=== PATIENT | male | born 1995 | race Hispanic/Latino ===

== ENCOUNTER 2017-06-27 21:21 | Emergency (ER) | payer BC ==
--- NOTE | 2017-06-27 22:19 | C.PDOC ---
History Of Present Illness 21 year old male who presents to the ER he fell down 12 steps and hit the back of his head. Patient admits he has been drinking tonight; denies LOC, headache, neck pain, or vomiting. Patient's last tetanus vaccination was 2-3 years ago. Time Seen by Provider: 06/27/17 22:03 Chief Complaint (Nursing): Abnormal Skin Integrity History Per: Patient History/Exam Limitations: no limitations Onset/Duration Of Symptoms: Hrs Current Symptoms Are (Timing): Still Present Location Of Injury: Posterior: Hand Recent travel outside of the [place]: No Past Medical History Reviewed: Historical Data, Nursing Documentation, Vital Signs Vital Signs: Last Vital Signs Temp 97.8 F 06/27/17 21:45 Pulse 95 H 06/27/17 21:45 Resp 20 06/27/17 21:45 BP 114/67 06/27/17 21:45 Pulse Ox 20 L 06/27/17 23:28 - Medical History PMH: No Chronic Diseases Surgical History: No Surg Hx Family History: States: Unknown Family Hx - Social History Hx Alcohol Use: Yes Hx Substance Use: No - Immunization History Hx Tetanus Toxoid Vaccination: Yes Hx Influenza Vaccination: Yes Hx Pneumococcal Vaccination: Yes Review Of Systems Constitutional: Negative for: Fever, Chills Gastrointestinal: Negative for: Nausea, Vomiting, Diarrhea Skin: Positive for: Other (Laceration) Neurological: Negative for: Other (LOC) Physical Exam - Physical Exam Appears: Non-toxic Skin: Warm, Dry Head: Laceration (2cm over the occipital scalp with surrounding hematoma) Eye(s): bilateral: Normal Inspection, PERRL, EOMI Oral Mucosa: Moist Neck: Normal, Supple Chest: Symmetrical, No Tenderness Cardiovascular: Rhythm Regular, No Murmur Respiratory: Normal Breath Sounds, No Rales, No Rhonchi, No Wheezing Gastrointestinal/Abdominal: Soft, No Tenderness Extremity: Normal ROM (x4), No Tenderness Neurological/Psych: Oriented x3, Normal Speech, Normal Cognition ED Course And Treatment - Laboratory Results Lab Interpretation: Abnormal (ETOH 279) - CT Scan/US CT Head Other Rad Studies (CT/US): Read By Radiologist, Radiology Report Reviewed CT/US Interpretation: EXAM: CT Head Without Intravenous Contrast. CLINICAL HISTORY: 21 years old, male; Injury or trauma; Fall; Initial encounter; Abrasion; Head, generalized; Additional. info: Head injury. TECHNIQUE: Axial computed tomography images of the head/brain without intravenous contrast. This CT exam. was performed using one or more of the following dose reduction techniques: automated exposure. control, adjustment of the mA and/or kV according to patient size, and/or use of iterative. reconstruction technique. EXAM DATE/TIME: 06/27/2017 10:10 PM. COMPARISON: No relevant prior studies available. FINDINGS: The falx and tentorium are slightly hyperdense however still felt to be within normal limits. No intraparenchymal hemorrhage. No intracranial edema. No fluid in the sinuses or mastoid air cells. No depressed fractures. IMPRESSION: No acute intracranial injury. CT Cervical Spine Other Rad Studies (CT/US): Read By Radiologist, Radiology Report Reviewed CT/US Interpretation: EXAM: CT Cervical Spine Without Intravenous Contrast. CLINICAL HISTORY: 21 years old, male; Injury or trauma; Fall; Initial encounter ; Sprain or strain, cervical ligaments;. Additional info: Head injury. TECHNIQUE: Axial computed tomography images of the cervical spine without intravenous contrast. This CT. exam was performed using one or more of the following dose reduction techniques: automated. exposure control, adjustment of the mA and/or kV according to patient size, and/or use of iterative. reconstruction technique. Coronal and sagittal reformatted images were created and reviewed. EXAM DATE/TIME: 06/27/2017 10:10 PM. COMPARISON: No relevant prior studies available. FINDINGS: The vertebral bodies and facet joints are well aligned. The vertebral body height is well maintained. No subluxation. No fractures. The soft tissues appear grossly normal. Small scattered lymph nodes are noted throughout the neck. IMPRESSION: No acute injury. Progress Note: CT cervical spine and CT head ordered. Reevaluation Time: 23:53 Reassessment Condition: Improved (Patient remains awake and alert and cooperative. His father is present and agrees to monitor him at home.) Procedure: Wound Repair - Time Performed Time Performed: 23:48 - Procedure Procedure: Wound Repair: Scalp laceration - Consent Obtained Consent obtained: Verbal - Performed by Performed by: Attending Physician - Indications Indication(s):: Laceration - Location Location:: Scalp Shape:: Linear Dimensions Length cm: 2cm Depth:: Subcutaneous fascia - Anesthetic Technique Anesthetic Technique: Local Local/Regional Anesthetic:: Lidocaine 2% - Debris Debris:: None - Irrigated Irrigated with ml of normal saline: 300ml - Complexity Complexity:: Simple (one layer) - Wound repair method Sutures:: Type (thang) - Complications Complications: none - Patient tolerated procedure Patient Tolerated Procedure:: Well Disposition Counseled Patient/Family Regarding: Studies Performed, Diagnosis, Need For Followup - Disposition Referrals: [facility] [Outside] Disposition: HOME/ ROUTINE Disposition Time: 23:50 Condition: IMPROVED Additional Instructions: Return to ED in 2 days for a wound check and staple removal in 7-10 days. Keep the wound clean and dry and covered with antibiotic ointment. Instructions: Alcohol Intoxication (ED), Head Injury (ED), Laceration (ED) Forms: [employer] (Angolan) - Clinical Impression Clinical Impression: Scalp laceration, Head injury, Alcohol intoxication - Scribe Statement The provider has reviewed the documentation as recorded by the Scribepifanio Krause All medical record entries made by the Scribe were at my direction and personally dictated by me. I have reviewed the chart and agree that the record accurately reflects my personal performance of the history, physical exam, medical decision making, and the department course for this patient. I have also personally directed, reviewed, and agree with the discharge instructions and disposition.
--- NOTE | 2017-06-27 23:11 | CT ---
EXAM: CT Head Without Intravenous Contrast CLINICAL HISTORY: 21 years old, male; Injury or trauma; Fall; Initial encounter; Abrasion; Head, generalized; Additional info: Head injury TECHNIQUE: Axial computed tomography images of the head/brain without intravenous contrast. This CT exam was performed using one or more of the following dose reduction techniques: automated exposure control, adjustment of the mA and/or kV according to patient size, and/or use of iterative reconstruction technique. EXAM DATE/TIME: 06/27/2017 10:10 PM COMPARISON: No relevant prior studies available. FINDINGS: The falx and tentorium are slightly hyperdense however still felt to be within normal limits. No intraparenchymal hemorrhage. No intracranial edema. No fluid in the sinuses or mastoid air cells. No depressed fractures. IMPRESSION: No acute intracranial injury.
--- NOTE | 2017-06-27 23:16 | CT ---
EXAM: CT Cervical Spine Without Intravenous Contrast CLINICAL HISTORY: 21 years old, male; Injury or trauma; Fall; Initial encounter; Sprain or strain, cervical ligaments; Additional info: Head injury TECHNIQUE: Axial computed tomography images of the cervical spine without intravenous contrast. This CT exam was performed using one or more of the following dose reduction techniques: automated exposure control, adjustment of the mA and/or kV according to patient size, and/or use of iterative reconstruction technique. Coronal and sagittal reformatted images were created and reviewed. EXAM DATE/TIME: 06/27/2017 10:10 PM COMPARISON: No relevant prior studies available. FINDINGS: The vertebral bodies and facet joints are well aligned. The vertebral body height is well maintained. No subluxation. No fractures. The soft tissues appear grossly normal. Small scattered lymph nodes are noted throughout the neck. IMPRESSION: No acute injury.
[2017-06-27] MEDS ORDERED: Lidocaine 2% Inj (20ml) ONE (23:38)
[2017-06-27] MEDS ORDERED: Bacitracin 500 Units/gm Oint Foilpak UD TOP ONE (23:51)
[2017-06-28] MEDS ORDERED: Bacitracin 500 Units/gm Oint Foilpak UD ONE
[2017-06-28 00:08] VITALS: BP 120/68; PULSE 90; RESP 16; TEMP 98; O2SAT 100
== END 2017-06-28 00:05 | disposition home or self-care (01) ==
LOC: C.ER 21:21
DX: S01.01XA Laceration without foreign body of scalp, initial encounter (principal); W10.9XXA Fall (on) (from) unspecified stairs and steps, initial encounter; Y92.89 Other specified places as the place of occurrence of the external cause; F10.129 Alcohol abuse with intoxication, unspecified; Y90.8 Blood alcohol level of 240 mg/100 ml or more
CPT/HCPCS: 12001; 70450; 72125; 99285; G0480